=== PATIENT | male | born 1955 | race Caucasian/White ===

== ENCOUNTER → 2020-11-01 | Day surgery (SDC) | payer MEDICARE, OTHER ==
[~2020-11-01] VITALS: Ht 180.3 cm; Wt 129.3 kg
[~2020-11-01] MED LIST: CARDIZEM CD240 MG PO; COZAAR100 MG PO; HCTZ25 MG PO; LIPITOR40 MG PO; METFORMIN HCL500 MG PO; PERCOCET 5-3251 EACH PO; ZINC PO
[2020-11-01 15:16] LABS: HCT 49.2 % (42.0-52.0); HGB 16.5 g/dl (13.2-18.0); MCHC 33.5 g/dL (32.0-36.0); MCV 95.3 fL (78.0-100.0); MPV 8.7 fL (6.0-9.5); RBC 5.16 M/uL (4.70-6.00); RDW 13.1 % (11.5-14.0); WBC 10.5 K/uL (4.0-10.5)
[2020-11-01 15:22] LABS: BUN/CREAT RATIO (CALC) 15.5 RATIO; CREATININE 0.84 mg/dL (0.67-1.17); POTASSIUM 4.1 mmol/L (3.5-5.1)
== END | disposition home or self-care (01) ==
LOC: FAS 14:11
PROVIDERS: Legal Medicine
DX: C49.11 Malignant neoplasm of connective and soft tissue of right upper limb, including shoulder (principal); I10 Essential (primary) hypertension; E11.9 Type 2 diabetes mellitus without complications
CPT/HCPCS: 36415; 80048; 87070; 87075; 87077; 87205; 93005; J0690; J1100; J1170; J1200; J1885; J2250; J2405; J2704; J2795; J3010; J3260; J7120